=== PATIENT | male | born 1960 | race Caucasian/White ===

== ENCOUNTER 2019-03-31 12:05 | Inpatient (IN) | payer MEDICARE, OTHER ==
[~2019-03-31] VITALS: Ht 172.7 cm; Wt 66.0 kg
--- NOTE | 2019-03-31 12:11 | NUR ---
[facility]YN[facility] From [facility] "Agressive Behavior to staff", pt to bed 14, pt awake, alert, -sob, nad noted, vss, pending md abdullahi
[2019-03-31] MEDS ORDERED: ESCI10TA PO (12:31)
[2019-03-31] MEDS ORDERED: VITA1TAB56 PO (12:31)
[2019-03-31] MEDS ORDERED: THIA100T88 PO (12:31)
[2019-03-31] MEDS ORDERED: QUET300T2 PO (12:31)
[2019-03-31 12:45] LABS: BASOPHILS % (AUTO) 1.5 % (0.0-2.0); HEMATOCRIT 38 % (39-51); HEMOGLOBIN 12.6 g/dL (13.5-17.5); LYMPHOCYTES % (AUTO) 28.7 % (20.0-44.0); MEAN CORPUSCULAR HGB CONC 34 g/dl (31.0-36.0); MEAN CORPUSCULAR VOLUME 93 fL (80-96); MONOCYTES % (AUTO) 6.3 % (2.0-12.0); NEUTROPHILS # (AUTO) 3.7 /CMM (1.8-8.9); NEUTROPHILS % (AUTO) 62.5 % (43.0-81.0); PLATELET COUNT (AUTO) 313 /CMM (150-450); RED BLOOD CELL COUNT(AUTO) 4.04 MIL/uL (4.5-6.0)
[2019-03-31 12:46] LABS: BASOPHILS # (AUTO) 0.1 /CMM (0.0-0.2); LYMPHOCYTES # (AUTO) 1.7 /CMM (0.8-4.8); MONOCYTES # (AUTO) 0.4 /CMM (0.1-1.30)
[2019-03-31 12:53] LABS: CALCIUM, SERUM 9.4 mg/dL (8.5-10.1); CREATININE 1.4 mg/dL (0.6-1.3); POTASSIUM 4.7 mmol/L (3.5-5.1)
[2019-03-31 12:58] LABS: BILIRUBIN,TOTAL 0.2 mg/dL (0.2-1.0); SALICYLATE 9.3 mg/dL (2.8-20.0); TOTAL PROTEIN, SERUM 7.8 g/dL (6.4-8.2)
--- NOTE | 2019-03-31 13:08 | NUR ---
CALLED ART FOR CRISIS EVALUATION.
[2019-03-31 14:02] LABS: APPEARANCE,URINE Clear (CLEAR); BILIRUBIN,URINE Negative (NEGATIVE); BLOOD, URINE Trace-intact Ery/uL (NEGATIVE); COLOR,URINE Yellow (YELLOW); KETONES,URINE Negative (NEGATIVE); LEUKOCYTE ESTERASE ,URINE Large (NEGATIVE); NITRITE, URINE Positive (NEGATIVE); PROTEIN,URINE Negative (NEGATIVE); UGLUCOSE Negative (NEGATIVE); UROBILINOGEN,URINE 0.2 EU/dL (0.2)
[2019-03-31 14:06] LABS: BACTERIA,URINE Few /HPF (None Seen); SQUAMOUS EPITHELIAL CELL,UR Rare /HPF (None Seen); WBC,URINE 21-50 /HPF (0-3)
--- NOTE | 2019-03-31 14:23 | NUR ---
NURSING SUP GAVE GPS BED 214B.
[2019-03-31] MEDS ORDERED: CEPHALEXIN MONOHYDRATE 500 MG CAPSULE PO ONE ×2 (14:48→15:00)
--- NOTE | 2019-03-31 14:58 | NUR ---
report given to hanna landis for piper pt will be transported to gps
--- NOTE | 2019-03-31 15:55 | NUR ---
pt transported to [facility]
[2019-03-31 16:00] VITALS: BP 116/81
--- NOTE | 2019-03-31 16:14 | NUR ---
DR. ABRAHAM MADE AWARE OF THE ADMISSION AND GAVE ORDERS.
[2019-03-31] MEDS ORDERED: MAG HYDROX/AL HYDROX/SIMETH 30 ML UDC PO PRN (16:30)
[2019-03-31] MEDS ORDERED: BLOOD SUGAR DIAGNOSTIC 1 EACH STRIP IN ONE (16:30)
[2019-03-31] MEDS ORDERED: MAGNESIUM HYDROXIDE 30 ML UDC PO PRN (16:30)
[2019-03-31] MEDS ORDERED: QUETIAPINE FUMARATE 25 MG TABLET PO PRN (16:30)
[2019-03-31] MEDS ORDERED: ACETAMINOPHEN 325 MG TABLET PO PRN (16:30)
[2019-03-31 18:16] VITALS: BP 116/81
--- NOTE | 2019-03-31 18:18 | NUR ---
CLINICAL EVALUATOR NOTE: PATIENT IS A 59 YEAR OLD MALE ADMITTED FROM [facility] ON A 5150 FOR GD. PER HOLD, "PATIENT BIB AMBULANCE FROM [facility] DUE TO AGITATION, THROWING THINGS ANF NON COMPLIANT WITH CARE. PATIENT KNOWS HIS NAME ONLY OTHERWISE HE IS CONFUSED AND A POOR HISTORIAN. PATIENT IS DISORGANIZED. HE IS PARANOID AND HEARS VOICES BUT CANNOT TELL WHAT THE VOICES STATE. PATIENT HAS IMPAIRED JUDGEMENT. POOR INSIGHT AND IMPUSLE CONTROL. PATIENT IS UNABLE TO PROVIDE FOR HIS FOOD AND ALF OR CLOTHING DUE TO A MENTAL DISORDER AND [facility] IS ALSO UNABLE TO PROVIDE THE SAME DUE TO PATIENT'S BEHAVIOR." UPON FACE TO FACE ASSESSMENT, PATIENT IS ALERT AND ORIENTED X1. UNKEMPT. GARBLED SPEECH. DENIES SI/HI/VAH AT THIS TIME. UNCOOPERATIVE AT TIMES WITH PLAN OF CARE. GUARDED, PASSIVE, SUSPICIOUS, PASSIVE, RESTLESS, ANXIOUS. FAIR IMPULSE CONTROL. ANXIOUS, LABILE MOOD. FLAT AFFECT. DISORGANIZED, DISORIENTED, CONFUSED. VSS. NO ACUTE DISTRESS NOTED. NO COMPLAINTS. MRSA SWAB DONE IN ER. PATIENT HAS NO VALUABLES. PATIENT IS ABLE TO CONCENTRATE FOR A SHORT WHILE BUT IS FORGETFUL. PATIENTS RIGHTS HANDBOOK GIVEN WITH GUIDE TO PRESCRIPTIONS. DR KITCHEN AND DR ABRAHAM AWARE OF ADMISSION/ TO REVIEW MED RECON ALONG WITH PSYCHIATRIC ADMITTING ORDERS. PATIENT WANTED US TO INFORM HIS SISTER ABOUT HIS ADMISSION BUT DOES NOT KNOW HER NUMBER. WAS NOT ABLE TO LOCATE NUMBER ANYWHERE IN PATIENT'S CHARTS. WILL ENDORSE TO FOLLOWING SHIFT TO DO SO. WILL CONTINUE TO MONITOR PATIENT Q15 MINUTES FOR SAFETY AND BEHAVIOR PER GPS PROTOCOL.
[2019-03-31] MEDS: CEPHALEXIN MONOHYDRATE 250 MG CAPSULE PO SCH (19:02)
[2019-03-31 20:00] VITALS: BP 112/71
[2019-04-01] MEDS: CEPHALEXIN MONOHYDRATE 250 MG CAPSULE PO SCH ×4 (00:25→18:27)
[2019-04-01 07:02] LABS: ALBUMIN 2.8 g/dL (3.4-5.0); BILIRUBIN,TOTAL 0.3 mg/dL (0.2-1.0); CALCIUM, SERUM 8.8 mg/dL (8.5-10.1); CREATININE 1.3 mg/dL (0.6-1.3); POTASSIUM 4.1 mmol/L (3.5-5.1); TOTAL PROTEIN, SERUM 7.4 g/dL (6.4-8.2)
[2019-04-01 07:06] LABS: CHOLESTEROL 155 mg/dL (<200); HDL CHOLESTEROL 56 mg/dL (40-60); LDL 83 mg/dL (0-99); TRIGLYCERIDES 94 mg/dL (30-150)
[2019-04-01 08:00] VITALS: BP 114/81
--- NOTE | 2019-04-01 08:42 | NUR ---
FACILITY CONTACT: CARLOTA spoke with Maria Eugenia RN at [facility] located at [address] [place] [address], [phone], who stated pt is currently on a 7 day bed hold.
[2019-04-01] MEDS: THIAMINE HCL 100 MG TABLET PO SCH (08:54)
--- NOTE | 2019-04-01 12:42 | NUR ---
FACILITY CONTACT: SW spoke with Ryan, case management specialist at [facility] located at [address] [place] [address], [phone], who provided SW with collateral information. He states that pt was admitted to their facility in 02/23/19 under [facility] care and was transferred from [facility] in [place]. Per Ryan, he states pt does not have family and is a poor historian. He states pt was previously at [facility] and was previously homeless. Per Ryan pt has a history of polysubstance use, alcohol use, and tobacco use but was sober when admitted to their facility. No other information was provided.
--- NOTE | 2019-04-01 13:05 | NUR ---
INITIAL DISCHARGE PLAN: Pt will return to SNF. CARLOTA spoke with MARIANA Del Cid at [facility] located at [address] [place] [address], [phone], who stated pt is currently on a 7 day bed hold. CARLOTA will help form a safe and proper discharge in collaboration with .
[2019-04-01 16:00] VITALS: BP 120/74
[2019-04-01] MEDS: risperiDONE-M 0.5 MG TAB.RAPDIS PO SCH (18:27)
[2019-04-01 20:15] VITALS: BP 126/83
[2019-04-01] MEDS: DIVALPROEX SODIUM 125 MG TABLET.DR PO SCH (20:45)
[2019-04-02] MEDS: CEPHALEXIN MONOHYDRATE 250 MG CAPSULE PO SCH ×2 (00:13→05:26)
--- NOTE | 2019-04-02 07:30 | NUR ---
INITIAL PATIENT KNOWS HIS NAME ONLY OTHERWISE HE IS CONFUSED AND A POOR HISTORIAN. PATIENT IS DISORGANIZED. PATIENT IS ALERT AND ORIENTED X1. UNKEMPT. GARBLED SPEECH. DENIES SI/HI/VAH AT THIS TIME. UNCOOPERATIVE AT TIMES WITH PLAN OF CARE. GUARDED, PASSIVE, SUSPICIOUS, PASSIVE, RESTLESS, ANXIOUS. DR KITCHEN AND DR ABRAHAM AWARE OF ADMISSION/ TO REVIEW MED RECON ALONG WITH PSYCHIATRIC ADMITTING ORDERS. ACCORDING TO PM SHIFT RN PATIENT WANTED US TO INFORM HIS SISTER ABOUT HIS ADMISSION BUT DOES NOT KNOW HER NUMBER. WAS NOT ABLE TO LOCATE NUMBER ANYWHERE IN PATIENT'S CHARTS. WILL ENDORSE TO FOLLOWING SHIFT TO DO SO. WILL CONTINUE TO MONITOR PATIENT Q15 MINUTES FOR SAFETY AND BEHAVIOR PER GPS PROTOCOL.
[2019-04-02 08:00] VITALS: BP 116/80
[2019-04-02] MEDS: DIVALPROEX SODIUM 125 MG TABLET.DR PO SCH ×3 (09:36→21:10)
[2019-04-02] MEDS: THIAMINE HCL 100 MG TABLET PO SCH (09:36)
[2019-04-02] MEDS: risperiDONE-M 0.5 MG TAB.RAPDIS PO SCH (09:36)
--- NOTE | 2019-04-02 15:37 | NUR ---
message paged md calle concerning patient cherelle wells about need for urine sample and if another antibiotic is still needed.
[2019-04-02 16:00] VITALS: BP 114/72
--- NOTE | 2019-04-02 16:07 | NUR ---
COMMUNICATION MD HARMAN CALLED BACK IN SPEAKING WITH HIM TWO CONCERNS WERE ADDRESSED PER MD ABRAHAM. ONE PT IS ASYMPTOMATIC AND THERE IS NO NEED FOR FURTHER ANTIBIOTIC THERAPY TWO NO URINE CULTURE NEEDED
--- NOTE | 2019-04-02 17:41 | NUR ---
closing pt compliant with all medications easily directable kept safe all shift no issued this shift. will given rn report to pm shift for continuity of care
[2019-04-02 20:47] VITALS: BP 112/78
[2019-04-02] MEDS: risperiDONE 1 MG TABLET PO SCH (21:10)
[2019-04-03 08:00] VITALS: BP 111/78
[2019-04-03] MEDS: THIAMINE HCL 100 MG TABLET PO SCH (08:19)
[2019-04-03] MEDS: DIVALPROEX SODIUM 125 MG TABLET.DR PO SCH ×3 (08:19→20:48)
[2019-04-03] MEDS ORDERED: risperiDONE-M 0.5 MG TAB.RAPDIS PO SCH (09:00)
[2019-04-03 16:00] VITALS: BP 120/79
--- NOTE | 2019-04-03 20:35 | NUR ---
GPS-RN PATIENT REFUSED WEEKLY SKIN ASSESSMENT DESPITE OF EDUCATION PROVIDED. PATIENT CONTINUES TO REFUSE. WILL ENDORSE TO THE DAY SHIFT NURSE FOR CONTINUITY OF CARE.
[2019-04-03 20:46] VITALS: BP 123/76
[2019-04-03] MEDS: risperiDONE 1 MG TABLET PO SCH (20:48)
[2019-04-04 08:00] VITALS: BP 117/74
[2019-04-04] MEDS: THIAMINE HCL 100 MG TABLET PO SCH (08:25)
[2019-04-04] MEDS: DIVALPROEX SODIUM 125 MG TABLET.DR PO SCH ×3 (08:25→20:04)
[2019-04-04] MEDS: risperiDONE-M 0.5 MG TAB.RAPDIS PO SCH (08:26)
[2019-04-04 16:00] VITALS: BP 108/74
[2019-04-04] MEDS: risperiDONE 1 MG TABLET PO SCH ×2 (20:04→21:00)
[2019-04-04 20:40] VITALS: BP 125/71
--- NOTE | 2019-04-04 21:07 | NUR ---
GPS RN NOTES: NON ADMINISTER RISPERDAL 1.5 MG PO @2100 ORDERED. PT SLEEPING IN BED. NO S/S OF RESP DISTRESS. BREATHING EVEN AND UNLABORED. CONTINUE TO MONITOR.
[2019-04-05 08:00] VITALS: BP 119/84
[2019-04-05] MEDS: DIVALPROEX SODIUM 125 MG TABLET.DR PO SCH ×3 (09:03→21:06)
[2019-04-05] MEDS: risperiDONE-M 0.5 MG TAB.RAPDIS PO SCH (09:03)
[2019-04-05] MEDS: THIAMINE HCL 100 MG TABLET PO SCH (09:03)
[2019-04-05 16:00] VITALS: BP 146/75
[2019-04-05 20:12] VITALS: BP 140/87
[2019-04-05] MEDS: risperiDONE 1 MG TABLET PO SCH (20:42)
[2019-04-06] MEDS: ZOLPIDEM TARTRATE 5 MG TABLET PO PRN ×2 (00:05→21:35)
--- NOTE | 2019-04-06 00:09 | NUR ---
PRN AMBIEN GIVEN PATIENT HAS BEEN IN & OUT OF BED FREQUENTLY, STATED HE CAN NOT GO TO SLEEP. PRN AMBIEN 5 MG PO GIVEN. WILL CONTINUE TO MONITOR.
[2019-04-06 08:00] VITALS: BP 116/74
[2019-04-06] MEDS: DIVALPROEX SODIUM 125 MG TABLET.DR PO SCH ×3 (08:24→21:35)
[2019-04-06] MEDS: risperiDONE-M 0.5 MG TAB.RAPDIS PO SCH (08:24)
[2019-04-06] MEDS: THIAMINE HCL 100 MG TABLET PO SCH (08:24)
--- NOTE | 2019-04-06 15:08 | NUR ---
FACILITY CONTACT: CARLOTA spoke with Mary Ann, community outreach coordinator at [facility] located at [address] [place] [address], [phone], who confirmed pts readmission, CARLOTA informed her that pt will be discharged tomorrow 04/07/19, she agreed and stated that pt will be going to room 26C and requested he be discharged at 7:00pm.
[2019-04-06 16:00] VITALS: BP 144/77
[2019-04-06 20:08] VITALS: BP 152/76
[2019-04-06] MEDS: risperiDONE 1 MG TABLET PO SCH (21:34)
--- NOTE | 2019-04-07 06:22 | NUR ---
FOUR CORNER FORMER MACHINE OPERATOR CLOSING NOTES PT REMAIN RESTING WITH EYES CLOSED BUT AROUSE TO TOUCH. NO AGITATION NOTED THE WHOLE SHIFT. FOLLOWED SIMPLE DIRECTION. SLEPT WELL AFTER SLEEP MEDICATION GIVEN. ALL DUE MEDS GIVEN AND SERVED SNACKS WELL. KEPT HIM WARM AND COMFORTABLE AT ALL TIMES. WILL ENDORSE TO AM NURSE FOR CONTINUITY OF CARE.
[2019-04-07 08:00] VITALS: BP 118/67
[2019-04-07] MEDS: THIAMINE HCL 100 MG TABLET PO SCH (08:24)
[2019-04-07] MEDS: risperiDONE-M 0.5 MG TAB.RAPDIS PO SCH (08:24)
[2019-04-07] MEDS: DIVALPROEX SODIUM 125 MG TABLET.DR PO SCH ×2 (08:24→13:23)
[2019-04-07 08:29] LABS: VALPROIC ACID 30 ug/mL (50-100)
[2019-04-07 08:32] LABS: ALANINE AMINOTRANSFERASE 16 U/L (12-78); ASPARTATE AMINOTRANSFERASE 14 U/L (15-37)
[2019-04-07] MEDS ORDERED: DIVALPROEX SODIUM 125 MG TABLET.DR PO ONE (09:30)
--- NOTE | 2019-04-07 10:49 | NUR ---
DISCHARGE NOTE: Pt will be discharged at 5:00pm via AMBULN[facility] to [facility] located at [address], [phone], . No family to notify. Pts mood is dysphoric with congruent affect. Pt denied suicidal/homicidal ideation and denied visual/auditory hallucinations. Pt will be under the care of Psychiatrist: Dr. Kofi Adame Address: [address] [place] [address] and Pipe Bending Machine Operator: Dr. Kurt Chacko Address: [address] [place] [address] . The multidisciplinary exit care form was done, printed, signed, and given to the patient. Addendum: 04/08/19 at 0820 by NAVEED VAN CARLOTA received notice from charge nurse that pt was not discharged yesterday due to the facility not having a bed available. CARLOTA contacted Mary Ann, community center coordinator at [facility] located at [address], [phone], who stated that pt was not accepted due to the facility being in survey and the network security administrator not wanting to take pt until after survey was over. CARLOTA informed her that the facility was out of compliance and needed to have a bed for him as pt is on a bed hold, Mary Ann understood and stated that she will try to get pt alternative placement with one of their sister facilities ans asked CARLOTA to give her 30 min to sort things out.
[2019-04-07 16:00] VITALS: BP 118/67
--- NOTE | 2019-04-07 16:50 | NUR ---
GPS/RN called [facility] located at [address] [place] [address], [phone], AND SPOKE WITH SUHAIL WHO PROMISED CALL BACK TO CONFIRM THE BED AVAILABILITY
--- NOTE | 2019-04-07 17:40 | NUR ---
GPS/RN DR ABRAHAM CALLED TO CANCEL THE D/C ORDER AND TO DISCHARGE PT TOMORROW TO THE SAME FACILITY
[2019-04-07 20:22] VITALS: BP 134/83
[2019-04-07] MEDS: risperiDONE 1 MG TABLET PO SCH (20:32)
[2019-04-08] MEDS: DIVALPROEX SODIUM 125 MG TABLET.DR PO SCH ×3 (06:02→13:25)
[2019-04-08 08:00] VITALS: BP 111/76
[2019-04-08] MEDS: THIAMINE HCL 100 MG TABLET PO SCH (08:07)
[2019-04-08] MEDS: risperiDONE-M 0.5 MG TAB.RAPDIS PO SCH (08:07)
--- NOTE | 2019-04-08 13:32 | NUR ---
DISCHARGE NOTE: Pt will be discharged at 3:30pm via AMBULN[facility] to [facility] located at [address], [address], . No family to notify. Pts mood is dysphoric with congruent affect. Pt denied suicidal/homicidal ideation and denied visual/auditory hallucinations. Pt will be under the care of Psychiatrist: Dr. Kofi Adame Address: [address] [place] [address] and Assisted Living Associate: Dr. Kurt Chacko Address: [address] [place] [address] . The multidisciplinary exit care form was done, printed, signed, and given to the patient. Addendum: 04/08/19 at 1535 by NAVEED VAN CARLOTA received a call from Madai bilingual patient support caseworker requesting pt be discharged Thursday04/09/19 per facilities request, Madai stated she made sure facility will take pt back. CARLOTA spoke with Mary Ann, school community relations coordinator at [facility] located at [address], [phone], who confirmed they will be accepting pt tomorrow Thursday04/09/19 and that there will be no issues.
[2019-04-08] MEDS ORDERED: PNEUMOCOCCAL 23-VAL P-SAC VAC 0.5 ML VIAL SQ ONE (14:00)
--- NOTE | 2019-04-08 15:35 | NUR ---
DISCHARGE NOTE: Pt will be discharged on Thursday04/09/19 at 10:00am via AMBULN[facility] to [facility] located at [address] [place] [address], [phone], . No family to notify. Pts mood is dysphoric with congruent affect. Pt denied suicidal/homicidal ideation and denied visual/auditory hallucinations. Pt will be under the care of Psychiatrist: Dr. Kofi Adame Address: [address] [place] [address] and Batter Mixer: Dr. Kurt Chacko Address: [address] [place] [address] . The multidisciplinary exit care form was done, printed, signed, and given to the patient.
[2019-04-08 16:00] VITALS: BP 118/79
[2019-04-08 20:00] VITALS: BP_SYST 111; BP_SYST 127; BP_DIAS 76
[2019-04-08] MEDS: risperiDONE 1 MG TABLET PO SCH (20:26)
[2019-04-09] MEDS: DIVALPROEX SODIUM 125 MG TABLET.DR PO SCH ×2 (05:16→08:34)
[2019-04-09 08:00] VITALS: BP 118/74
[2019-04-09] MEDS: risperiDONE-M 0.5 MG TAB.RAPDIS PO SCH (08:34)
[2019-04-09] MEDS: THIAMINE HCL 100 MG TABLET PO SCH (08:34)
--- NOTE | 2019-04-09 08:49 | NUR ---
Dr. Adame gave an order to d/c hold and d/c to [facility] and to follow up with psych and medical doctors. Called the facility and spoke to the grain and yeast plants supervisor Kelly and confirmed that they are accepting him today and will go to room 26c.
--- NOTE | 2019-04-09 10:51 | NUR ---
GPS/RN PT IS TO BE D/C TO [facility].(THE SAME FACILITY PT COME FROM) REPORT GIVEN TO RAMILA RN. NO SI OR HI AT THE TIME OF DISCHARGE. VSS. PT IS AMBULATORY, CONTINENT, NO SKIN ISSUES. PROPERTY RETURN, ID BAND REMOVED.HOLD DISCONTINUED. PT LEFT VIA AMBULANCE
== END 2019-04-09 11:05 | DRG 885 ==
LOC: ER 12:06 → GPS 15:57
PROVIDERS: ADMIT Psychiatry & Neurology Psychiatry; ATTEND Internal Medicine
DX: F20.0 Paranoid schizophrenia (principal); N17.0 Acute kidney failure with tubular necrosis; N39.0 Urinary tract infection, site not specified; G25.9 Extrapyramidal and movement disorder, unspecified; D63.8 Anemia in other chronic diseases classified elsewhere; F03.90 Unspecified dementia, unspecified severity, without behavioral disturbance, psychotic disturbance, mood disturbance, and anxiety; F39 Unspecified mood [affective] disorder; F17.210 Nicotine dependence, cigarettes, uncomplicated; J45.909 Unspecified asthma, uncomplicated
CPT/HCPCS: 36415; 80048-TC; 80053-TC; 80061-TC; 80076-TC; 80164-TC; 80305; 81000-TC; 82962-TC; 84450-TC; 84460-TC; 85025-TC; 87081-TC; 87086-TC; 87186-TC; 87491; 87591; 90732; G0480